=== PATIENT | male | born 1965 | race Caucasian/White ===

== ENCOUNTER 2021-06-07 02:19 | Emergency (ER) | payer MEDICAID ==
[~2021-06-07] VITALS: Ht 180.3 cm; Wt 88.2 kg
[2021-06-07] MEDS ORDERED: ALBU8.5H8 IH (02:48)
[2021-06-07] MEDS ORDERED: HYDR50CA9 PO (02:48)
[2021-06-07] MEDS ORDERED: ESCI-8 PO (02:48)
[2021-06-07] MEDS ORDERED: [UNRECOGNIZED DRUG - CODE] PO (02:48)
[2021-06-07] MEDS ORDERED: LISI-657 PO (02:48)
[2021-06-07] MEDS ORDERED: LORazepam 2 MG/ML VIAL IVP ONE (03:00)
[2021-06-07] MEDS ORDERED: SODIUM CHLORIDE 0.9% 1,000 ML IV ONE (03:00)
[2021-06-07 03:20] LABS: BASOPHILS % (AUTO) 0.3 % (0.0-2.0); EOSINOPHILS % (AUTO) 0.1 % (1.0-6.0); HEMATOCRIT 50.8 % (41-53); LYMPHOCYTES % (AUTO) 8.2 % (22.0-44.0); MEAN CORPUSCULAR HEMOGLOBIN 30.8 pg (26.0-34.0); MEAN CORPUSCULAR HGB CONC 33.4 G/dL (31.0-37.0); MEAN CORPUSCULAR VOLUME 92 fL (80-100); MONOCYTES # (AUTO) 1.3 K/uL (0.1-1.0); MONOCYTES % (AUTO) 10.9 % (2.0-9.0); NEUTROPHILS # (AUTO) 9.9 K/uL (1.8-7.7); NEUTROPHILS % (AUTO) 80.5 % (40.0-70.0); PLATELET COUNT (AUTO) 207 K/uL (150-450); RED BLOOD CELL COUNT(AUTO) 5.51 MIL/uL (4.50-5.90); RED CELL DISTRIBUTION WIDTH 13.6 % (11.5-14.5)
[2021-06-07 04:26] LABS: CALCIUM, TOTAL 9.5 mg/dL (8.8-10.5); CREATININE 1.44 mg/dL (0.60-1.30); POTASSIUM 4.6 mmol/L (3.5-5.1)
[2021-06-07 04:32] LABS: ALBUMIN 3.9 g/dL (3.4-5.0); BILIRUBIN,TOTAL 0.4 mg/dL (0.1-1.0); TOTAL PROTEIN, SERUM 7.4 g/dL (6.4-8.2)
[2021-06-07 05:52] LABS: GLUCOSE,POINT OF CARE 183 MG/DL (70-110)
[2021-06-07 05:57] VITALS: BP 139/99
== END 2021-06-07 07:06 | disposition home or self-care (01) ==
LOC: EMS 02:21
DX: F32.9 Major depressive disorder, single episode, unspecified (principal); F41.9 Anxiety disorder, unspecified; I10 Essential (primary) hypertension; F17.210 Nicotine dependence, cigarettes, uncomplicated; F15.90 Other stimulant use, unspecified, uncomplicated; E16.2 Hypoglycemia, unspecified
CPT/HCPCS: 36415; 80053; 82962; 85025; 96361; 96374; 99283; J2060; J7030